=== PATIENT | female | born 1955 | race Caucasian/White ===

== ENCOUNTER → 2018-01-04 | Outpatient (CLI) | payer OTHER ==
[~2018-01-04] MED LIST: REGADENOSON 0.4 MG/5 ML SYRINGE ONE; WARF5TAB PO
== END | disposition home or self-care (01) ==
LOC: CFH 11:59
PROVIDERS: ATTEND Internal Medicine Cardiovascular Disease
DX: I51.7 Cardiomegaly (principal); I26.99 Other pulmonary embolism without acute cor pulmonale
CPT/HCPCS: 78452; 93017; 93306; A9502; J2785